=== PATIENT | male | born 1960 | race Caucasian/White ===

== ENCOUNTER 2017-03-19 05:14 | Day surgery (SDC) | payer OTHER ==
[~2017-03-19] VITALS: Ht 172.7 cm; Wt 95.3 kg
--- NOTE | ~2017-03-19 | EKG ---
[address] [address] ELECTROCARDIOGRAM REPORT Name: MANUEL CAGLE Room #: 150-4 [facility]#: [id number] Admission: 03/19/17 Attend Phys: Ra Botello MD Discharge: Date of : 64 Report #: [id number] THIS REPORT FOR: //name// [facility] Test Date: 2017-03-19 Test Time: 07:34:55 Pat Name: MANUEL CAGLE Department: Room: 150 4 Gender: M Electrical Estimator: ELIZABETH : 1960 Requested By: Ra Botello Order Number: [id number] MD: Vincent Sims Measurements Intervals [place] Rate: 87 P: 24 NE: 150 QRS: -37 QRSD: 78 T: 7 QT: 363 QTc: 437 Interpretive Statements Sinus rhythm Left axis deviation No previous ECG available for comparison Electronically Signed On 03-19-2017 7:53:31 CDT by Vincent Sims [email or web address] <ELECTRONICALLY SIGNED> By: Vincent Sims MD, [facility] 03/19/17 0753 0734 0734 Vincent Sims MD, FACC /EPI
--- NOTE | ~2017-03-19 | H ---
[facility] [place] [address] HISTORY AND PHYSICAL Name: CAGLEMANUEL HAMLIN Bobby Room #: PRE [facility]..#: [id number] Admission: Attend Phys: Ra Botello MD Discharge: Date of : 64 Report #: [id number] THIS REPORT FOR: //name// CC: FAM unknown Ra CARLSON DO PREOPERATIVE DIAGNOSES: Symptomatic left inguinal hernia and umbilical hernia, finding of a right inguinal hernia also. HISTORY OF PRESENT ILLNESS: The patient is a 56-year-old who was seen in the office a month ago for evaluation of umbilical hernia and the left inguinal hernia. The patient was told several years ago that he had an umbilical hernia. Recently, he is having increasing discomfort in the umbilicus. He was noted to have a left inguinal hernia. The patient does heavy work in construction. He has had bilateral hip replacement last year. The patient denies nausea or vomiting or bloating. Bowels are working well. No difficulty urinating. He does not have to strain with urination. He has occasional cough. No chronic sneezing. No family history of hernias. The patient is recommended to undergo repair of his multiple hernias including bilateral inguinal hernia and umbilical hernia. The patient is brought in for the procedure. PAST MEDICAL HISTORY: The patient denies lung disease. Denies heart disease, denies liver disease. Denies kidney disease. Denies bleeding disorder. Denies history of blood clot. He does have high blood pressure. No diabetes. MEDICATIONS: He takes lisinopril 20 mg once a day. PAST SURGICAL HISTORY: Right hip, 12/2015. Left hip 04/2016. Elbow surgery 2001. ALLERGIES: ALLERGIC TO PENICILLIN. Reaction is unknown, was long time ago. FAMILY HISTORY: Mother of cancer at age 75. Otherwise, no significant family history. SOCIAL HISTORY: The patient works in construction. He smokes half a pack a day. He drinks 3-4 drinks. REVIEW OF SYSTEMS: Hip issues. No chest pain, shortness of breath, palpitation. No numbness and weakness in the extremity. PHYSICAL EXAMINATION: GENERAL: The patient is mildly obese. HEENT: Pupils react to light. Extraocular muscles are intact. Oropharynx clear. NECK: Soft and supple, no masses. [facility] [address] [place] [address] HISTORY AND PHYSICAL Name: MANUEL CAGLE Room #: [facility]#: [id number] Admission: Attend Phys: Ra Botello MD Discharge: Date of : 64 Report #: [id number] LUNGS: Clear to auscultation. HEART: Regular rate and rhythm. No murmur or gallop. ABDOMEN: Does show tenderness at the umbilical area. It is reducible with a feeling of fat through the defect. No abdominal mass or ascites. No diffuse abdominal tenderness. The patient has a moderately large left inguinal hernia, which is reducible; a smaller right inguinal hernia, again reducible. Testicles are normal and descended without masses. EXTREMITIES: No cyanosis, clubbing or edema. IMPRESSION: The patient is a 56-year-old with increasing and symptomatic umbilical hernia. He is found to have bilateral inguinal hernia, left side is larger. He is becoming more aware of the left side with discomfort. Repair of bilateral inguinal hernia with properitoneal approach was discussed and recommended. His umbilical hernia will need to be repaired with a mesh also. Laparoscopic repair with use of mesh was discussed. Risk of hernia repaired including bleeding, infection, mesh infection and hernia recurrence were discussed. The patient understands and wishes to proceed. By: [id number] Ra Botello MD /nt
--- NOTE | ~2017-03-19 | O ---
[facility] [place] [address] OPERATIVE REPORT Name: MANUEL CAGLE Bobby Room #: 150-4 [facility].#: [id number] Admission: 03/19/17 Attend Phys: Ra Botello MD Discharge: Date of : 64 Report #: [id number] THIS REPORT FOR: //name// CC: Ra Hensley DATE OF SERVICE: 03/19/2017 PREOPERATIVE DIAGNOSES: 1. Bilateral inguinal hernia. 2. Umbilical hernia. POSTOPERATIVE DIAGNOSES: 1. Bilateral direct inguinal hernia. 2. Umbilical hernia. PROCEDURES PERFORMED: 1. Laparoscopic properitoneal repair of bilateral inguinal hernia with mesh. 2. Repair of umbilical hernia with mesh. ANESTHESIA: General. SURGEON: Ra Botello M.D. COMPLICATIONS: None. ESTIMATED BLOOD LOSS: 5 mL. IMPLANTS: Large 3DMax mesh, bilateral and medium Ventralex ST patch. SURGEON: Ra Botello M.D. PROCEDURE NOTE: With the patient under general anesthesia, abdomen was prepped and draped in sterile fashion. IV antibiotic was administered, Sparks catheter was placed. Timeout was performed. A 0.25% Marcaine was used to anesthetize the skin and abdominal wall at the cannulation site. A transverse incision was made adjacent on the right side of the umbilicus and then carried underneath the umbilicus. This will be to getting entrance to the properitoneal space and also for the umbilical hernia repair. The anterior rectus sheath was identified lateral to the umbilicus. The anterior rectus sheath was incised. The muscle was spread. The space between the muscle and the posterior sheath was then bluntly dissected inferiorly. An Origin balloon trocar was then placed through the space. The balloon was inflated and sealed. CO2 was placed. Under direct visualization, a 5 mm trocar was placed about 2 inches below the umbilicus. Properitoneal space was opened up. Once the start of the properitoneal dissection, air was noted to go into the peritoneal cavity. I am not sure where [facility] [address] [place] [address] OPERATIVE REPORT Name: MANUEL CAGLE Bobby Room #: 150-4 [facility]..#: [id number] Admission: 03/19/17 Attend Phys: Ra Botello MD Discharge: Date of : 64 Report #: [id number] it is going in from the peritoneum, may have some quite thinned portions. The properitoneal dissection was carried out. A 5 mm trocar was placed in the right lower abdomen lateral to the inferior epigastric vessel. At this point was noted that the air intraperitoneally was quite large and was roving the view in the properitoneal space. A 5 mm trocar was placed in the left abdomen under visualization using a Visiport. This was placed without difficulty. A smoke evacuator was placed through this trocar to release the intraperitoneal air. This allowed the properitoneal space opened up much better. The left side was dissected free. There was an obvious direct defect found. The fat was reduced from this area. On the right side, there was also a direct defect. The defect is about 1 cm in size. On the left side, the defect is about 3 cm in size and it went angular fashion. The peritoneum over both sides of both cords were found and there is no indirect component. The peritoneum was further free from the cord structure. There was a cord lipoma on the right side that was reduced. On the left side, the cord was generally fatty without a distinct lipoma. Once both sites were dissected free, a 3DMax large sized left mesh was used. This was placed with Origin trocar and then opened in the properitoneal space. This was positioned properly and then tacked. SorbaFix was used to tack the mesh in place. The mesh was tacked laterally to the wall with SorbaFix and then to Kin's ligament just above pubic bone medial inferiorly and then to the rectus muscle superior medially. The left side of mesh seated well. A right-sided piece was used for the right side. This was brought into the properitoneal space opened up and positioned and then tacked in exact manner as the left side. Once the mesh was tacked in place, the CO2 was evacuated from the properitoneal space. Trocars were removed. The Origin balloon trocar was deflated and removed. The intraperitoneal 5 mm trocar was also removed. The incision was extended slightly underneath the umbilicus. This allowed the umbilical hernia to be dissected free. There was about a 2 cm fascia defect present. There was hernia sac that was stuck to the surrounding tissue and skin. This was easily free. The hernia sac was freed and then freed from the edge of the umbilical fascia defect and then reduced in the properitoneal space. Properitoneal space was opened up easily. Once the properitoneal space was opened up, a medium sized Ventralex ST patch was placed. The patch opened up completely. The fascia defect at the umbilicus was then closed with 0 Prolene suture in a horizontal mattress fashion. This incorporated the strap of the Ventralex patch. After the wall was closed with 2 separate horizontal mattress suture, the strap was cut at the fascia level. The fascia defect in the anterior fascia for the laparoscopic portion was closed with 0 PDS [id number] x 2. Skin was irrigated and closed with 5-0 PDS. Steri-Strip, Band-Aids applied. The patient tolerated the procedure well and was taken to recovery room. By: [id number] Ra Botello MD /kenny
[~2017-03-19 05:14] MED LIST: IBUPROFEN 400400 M2 PO; MAGNESIUM OXID200 MG PO; OMEGA 3 1,0001 EACH PO; PRINIVIL20 M1 PO; VITAMIN B COMP1 EACH PO; VITAMIN D3400 UNIT PO
[2017-03-19 07:57] LABS: HEMATOCRIT 48.8 % (42.0-52.0); HEMOGLOBIN 16.9 gm/dL (14.0-18.0)
[2017-03-19 08:30] VITALS: BP 120/74
[2017-03-19] MEDS ORDERED: NORCO 5-325 TA1 EACH PO (11:13)
[2017-03-19 11:24] VITALS: BP 120/74
== END 2017-03-19 13:15 | disposition home or self-care (01) ==
LOC: OR 05:14 → TBA 05:14 → OR 12:44
PROVIDERS: Surgery
DX: K40.20 Bilateral inguinal hernia, without obstruction or gangrene, not specified as recurrent (principal); K42.9 Umbilical hernia without obstruction or gangrene; D17.6 Benign lipomatous neoplasm of spermatic cord; I10 Essential (primary) hypertension; F17.210 Nicotine dependence, cigarettes, uncomplicated; Z96.643 Presence of artificial hip joint, bilateral; Z98.890 Other specified postprocedural states; Z88.0 Allergy status to penicillin; Z79.899 Other long term (current) drug therapy
CPT/HCPCS: 50010; 50101; 50130; 50411; 50455; 50555; 50687; 50854; 53065; 53307; 56525; 56526; 56719; 62110; 62900; 64031; 70005

== ENCOUNTER → 2018-10-01 | Outpatient (CLI) | payer OTHER ==
[~2018-10-01] MED LIST changes: +NORCO 5-325 TA1 EACH PO
== END ==
LOC: RAD 14:49
DX: R09.89 Other specified symptoms and signs involving the circulatory and respiratory systems (principal); R05 Cough

== ENCOUNTER → 2019-04-14 | Outpatient (CLI) | payer OTHER | LOC: RAD 14:37 | DX: M47.26 Other spondylosis with radiculopathy, lumbar region (principal); M48.061 Spinal stenosis, lumbar region without neurogenic claudication; M25.78 Osteophyte, vertebrae; M43.16 Spondylolisthesis, lumbar region; M47.814 Spondylosis without myelopathy or radiculopathy, thoracic region ==

== ENCOUNTER → 2019-05-28 | Outpatient (CLI) | payer OTHER | LOC: MRI 06:44 | DX: M47.26 Other spondylosis with radiculopathy, lumbar region (principal); M51.16 Intervertebral disc disorders with radiculopathy, lumbar region; M43.16 Spondylolisthesis, lumbar region; M48.061 Spinal stenosis, lumbar region without neurogenic claudication; M12.88 Other specific arthropathies, not elsewhere classified, other specified site; M51.27 Other intervertebral disc displacement, lumbosacral region ==

== ENCOUNTER → 2020-04-04 | Outpatient (CLI) | payer OTHER | LOC: LAB 08:59 | PROVIDERS: ATTEND Neuromusculoskeletal Medicine & OMM | DX: R05 Cough (principal); R50.9 Fever, unspecified; Z20.828 Contact with and (suspected) exposure to other viral communicable diseases ==